=== PATIENT | female | born 1935 | race Hispanic/Latino ===

== ENCOUNTER 2017-07-26 06:03 | Day surgery (SDC) | payer MEDICARE ==
[2017-07-15 10:34] VITALS: BMI 28.3
[2017-07-26] MEDS ORDERED: Lidocaine 1% Inj (20ml) ONE (07:20)
[2017-07-26] MEDS ORDERED: Dexamethasone 4 mg/1 ml ONE (07:20)
[2017-07-26] MEDS ORDERED: Midazolam 2 MG/2 ML VIAL ONE (07:46)
[2017-07-26] MEDS ORDERED: Propofol 10 mg/ml Inj (20 ML) ONE ×3 (07:47→08:55)
[2017-07-26] MEDS: Bupivacaine 0.5% Inj(30mL) ONE ×2 (07:50→09:35)
[2017-07-26] MEDS ORDERED: HYDROmorphone 0.5 mg/0.5 ml ISec IVP PRN (09:53)
--- NOTE | 2017-07-26 09:54 | PCM.SURG1 ---
Surgeon's Initial Post Op Note - Surgeon's Notes Surgeon: Dr. Javid Singleton, DPM Catalytic Converter Operator Helper: Dr. Ck Fu, PGY1 Type of Anesthesia: IV Sedation, Local Anesthesia Administered By: Dr. Bo Pre-Operative Diagnosis: Painful hallux abductovalgus right foot. Painful hammertoe deformity, right second digit Operative Findings: See dictation report. M- 18 mm headless, cannulated 3.0 screw, 1.3 mm orthosorb pin, 2-0 vicryl, 4-0 vicryl, 4-0 nylon. I- Preop: 20 cc 1:1 1% lidocaine plain and 0.5% marcaine plain. Postop: 10 cc 0.5% marcaine plain, 1 cc dexamethasone Post-Operative Diagnosis: Same as above Operation Performed: 1) Reverdin- [place] osteotomy with headless screw fixation right foot, first metatarsal. 2) Distal edyta procedure, right first proximal phalanx. 3) Dorsomedial 2nd MTPJ capsulotomy. 4) Stab incision flexor tenotomy , DIPJ right second digit Specimen/Specimens Removed: None Estimated Blood Loss: EBL {In ML}: 10 Blood Products Given: N/A Drains Used: No Drains Post-Op Condition: Good Date of Surgery/Procedure: 07/26/17 Time of Surgery/Procedure: 08:00
[2017-07-26 10:47] VITALS: TEMP 97.5
[2017-07-26 10:57] VITALS: BP 144/70; PULSE 56; RESP 18; O2SAT 94
--- NOTE | 2017-07-26 10:57 | RAD ---
PROCEDURE: Right Foot Radiographs. HISTORY: s/p right foot surgery COMPARISON: None. FINDINGS: BONES: There is loss of the normal cortex along the medial aspect of the head of the 1st metatarsal. Presumably this is from recent surgery. Osteomyelitis cannot be excluded. A vertically oriented transverse screw can be seen in the head of the metatarsal JOINTS: Normal. SOFT TISSUES: Normal. OTHER FINDINGS: None. IMPRESSION: There is loss of the normal cortex along the medial aspect of the head of the 1st metatarsal. Presumably this is from recent surgery. Osteomyelitis cannot be excluded. A vertically oriented transverse screw can be seen in the head of the metatarsal
--- NOTE | 2017-07-26 11:05 | RAD ---
PROCEDURE: Fluoroscopy up to 1 hour HISTORY: INSERT SCREW RT FOOT COMPARISON: TECHNIQUE: Fluoroscopy was provided in the operating room. 2 seconds of fluoroscopy time were utilized. 1 image was submitted FINDINGS: The image shows 2 longitudinally oriented pins in the 1st metatarsal IMPRESSION: As above
--- NOTE | 2017-07-27 19:38 | OP ---
PROCEDURE DATE: 07/26/2017 PREOPERATIVE DIAGNOSES: Painful hallux abductovalgus, right foot; painful hammertoe deformity, right second digit. POSTOPERATIVE DIAGNOSES: Painful hallux abductovalgus, right foot; painful hammertoe deformity, right second digit.. PROCEDURES: 1. [place] osteotomy with headless screw fixation, right foot first metatarsal. 2. Distal Manuel procedure, right first proximal phalanx. 3. Dorsomedial second metatarsophalangeal joint capsulotomy. 4. Stab incision flexor tenotomy, distal interphalangeal joint, right second digit. SURGEON: Javid Singleton DPM WATCH REPAIR PERSON: Ck Fu, PGY1. TYPE OF ANESTHESIA: IV sedation with local. ANESTHESIA ADMINISTERED BY: Dr. Bo. INDICATIONS: The patient is an 82-year-old female with the above diagnoses. The patient has exhausted all conservative treatments at this time and now requires surgical intervention. The patient signed the consent after careful explanation of risks, benefits, complications, and alternatives of the surgical procedure. No guarantees were given nor implied. N.p.o status was confirmed prior to taking the patient to the OR. PREPARATION: The patient was brought into the operating room and placed on the operating room table in a supine position. Time-out was performed for identification of the correct patient and procedure. After induction of IV sedation, the patient received a total of 20 mL of a 1:1 mixture of 0.5% Marcaine plain and 1% Lidocaine plain in a local block fashion to the right first and second rays. The right lower extremity was then prepped and draped in a normal sterile manner. Pneumatic tourniquet at a pressure setting of 225 mmHg was then inflated and the procedure was begun. DESCRIPTION OF PROCEDURE: 1. Attention was then drawn to the first ray. Using a #15 blade, a longitudinal incision was made down to the level of subcutaneous tissue from the level of the mid shaft to the first metatarsal bone to the level of the base of the first proximal phalanx. Using the same blade, sharp dissection was made down to below the level of deep fascia with extra care taken to ensure the neurovascular tendinous and ligamentous structures were identified and avoided. A lateral release was then performed in the normal manner without incident. Using a new number 64,00 blade, a longitudinal incision was made along the length of the first metatarsal down to the level of bone and the periosteum was dissected away from the bone exposing the metatarsal head and distal shaft. Using an oscillating saw, the medial prominence of the metatarsal head was resected in the sagittal plain and removed from the field. The oscillating saw was then used to make a classic Reverdin-[place] cut where a 90-degree [id number] osteotomy of the metatarsal head is made with a medially based wedge removed. The newly formed capital fragment was then moved laterally in order to adequately close down the patient's increased first intermetatarsal angle and the capital fragment was fixated into its new position using an 18 mm headless cannulated 3.0 screw. 2. Attention was then drawn to the level of the first proximal phalanx. Using a fresh #15 blade, a longitudinal incision was made down to the level of subcutaneous tissue from the level of the base of the first distal phalanx to just distal to the level of the base of the first proximal phalanx. Using the same blade, sharp dissection was made down to below the level of the fascia with extra care taken to ensure that the neurovascular tendinous and ligamentous structures were identified and avoided. Using a new #64,00, blade a longitudinal incision was made along the length of the first metatarsal down to the level of the bone and the periosteum was dissected away from the bone exposing entire mid shaft of the first proximal phalanx. An oscillating saw was then used to perform a medially based wedge osteotomy in the distal aspect of the first proximal phalanx shaft in a traditional Manuel style without violation of the lateral cortex. Osseous wedge was removed from the field and the remaining gap was closed down so that bony apposition was appreciated. The osteotomy was held in this new position using a 1.3 mm OrthoSorb pin. 3. Attention was then drawn to the dorsal right second metatarsophalangeal joint where an approximately 3 mm incision was made using a #15 blade. A #6400 blade was then inserted into the incision and a dorsomedial metatarsophalangeal joint capsulotomy was performed without incident. 4. Attention was then drawn to the plantar right second distal interphalangeal joint where a transverse incision was made with a #15 blade. A #64,00 blade was then inserted in to the incision site and a transverse tenotomy of the flexor digitorum brevis tendon was performed without incident. All incision sites were then flushed with copious amounts of sterile normal saline. The incision site at the first metatarsal and first proximal phalanx were closed with 2-0 Vicryl and 4-0 Vicryl deep and 4-0 nylon superficially. Incision site at the dorsal second metatarsophalangeal joint was closed with 4-0 nylon superficially and the stat incision made at the plantar second distal interphalangeal joint was left open. A 10 mL of 0.5% Marcaine plain and 1 mL of dexamethasone was then injected around all surgical sites. All sites were dressed with Betadine soaked Adaptic gauze and Kerlix. POST OPERATIVE CONDITION: The patient tolerated the anesthesia and procedure well and was escorted to the recovery room with vital signs stable and neurovascular status intact to the right lower extremity. The patient is to remain partial weightbearing to right lower extremity. The patient will follow up with Dr. Singleton in his office in one week. Ck Fu DPM Javid Singleton DPM
== END 2017-07-26 11:25 | disposition home or self-care (01) ==
LOC: SDS 06:03
PROVIDERS: ATTEND Podiatrist
DX: M20.11 Hallux valgus (acquired), right foot (principal); M20.41 Other hammer toe(s) (acquired), right foot
CPT/HCPCS: 28270; 28285; 28296; 73630; 88304; 88311; C1713; J0690; J1100; J1170; J2250; J2405; J2704; J3010; J7120

== ENCOUNTER 2018-07-10 07:34 | Emergency (ER) | payer MEDICARE ==
[2018-07-10 07:59] VITALS: BMI 29.2
--- NOTE | 2018-07-10 08:09 | ED PDOC ---
Arrival/HPI - General Historian: Patient - History of Present Illness Narrative History of Present Illness (Text): 07/10/18 08:02 83 yo F with no significant past medical history presenting to ED with L wrist and knee pain s/p mechanical fall yesterday morning. Per patient, she was walking outside when she tripped over an uneven sidewalk, hitting the L side of her head and breaking her fall on L wrist and knee. She denies any loss of consciousness, headaches, or dizziness. She was able to pick herself back up after the fall and walk back home. She decided to come to the ED today because of increased swelling to her L wrist and continued mild discomfort of the L wrist and knee. No other acute complaints at this time. Patient refused tetanus vaccine at this time. No fevers/chills, headaches, dizziness, changes in vision, chest pain, palpitations, abdominal pain, n/v/d/c. PMHx: none PSHx: none Allergies: NKDA Home Medications: None Family Hx: unknown Social Hx: former smoker-quit 25 years ago, 2 ppd; denies alcohol or drug use PMD: Dr. Paulino Time/Duration: 24 hours Symptom Onset: Sudden Symptom Course: Unchanged Severity Level: Mild Activities at Onset: Light <Chinedu Judd - Last Filed: 07/10/18 09:50> <Sourav Kevin - Last Filed: 07/10/18 11:48> - General Chief Complaint: Trauma Time Seen by Provider: 07/10/18 07:41 Past Medical History - Provider Review Nursing Documentation Reviewed: Yes - Past History Past History: No Previous - Cardiac Hx Pacemaker: No - Neurological Hx Paralysis: No - Hematological/Oncological Hx Blood Transfusions: No - Musculoskeletal/Rheumatological Hx Musculoskeletal Disorders: Yes - Psychiatric Hx Emotional Abuse: No Hx Physical Abuse: No Hx Substance Use: No - Anesthesia Hx Anesthesia Reactions: No - Suicidal Assessment Feels Threatened In Home Enviroment: No <Chinedu Judd - Last Filed: 07/10/18 09:50> Family/Social History - Physician Review Nursing Documentation Reviewed: Yes Family/Social History: Unknown Family HX Smoking Status: Former Smoker Hx Alcohol Use: No Hx Substance Use: No <Chinedu Judd - Last Filed: 07/10/18 09:50> Allergies/Home Meds <Chinedu Judd - Last Filed: 07/10/18 09:50> <Jade Kevinil - Last Filed: 07/10/18 11:48> Allergies/Adverse Reactions: Allergies No Known Allergies Allergy (Verified 07/10/18 08:12) Home Medications: Home Meds Medication Instructions Recorded Confirmed RX: No Known Home Med 07/10/18 07/10/18 Review of Systems - Review of Systems Constitutional: Normal Eyes: Normal ENT: Normal Respiratory: Normal Cardiovascular: Normal Gastrointestinal: Normal Genitourinary Female: Normal Musculoskeletal: Joint Swelling Skin: Skin Lesions Neurological: Normal. absent: Headache, Dizziness, Gait Changes, Speech Changes, Facial Droop, Disequilibrium Endocrine: Normal Hemo/Lymphatic: Normal Psychiatric: Normal <Chinedu Judd - Last Filed: 07/10/18 09:50> Physical Exam - Physical Exam Narrative Physical Exam (Text): 07/10/18 08:16 L perioribital ecchmyosis, small abrasion above L eyebrow swelling, mild TTP dorsum L wrist L knee: swollen, mild abrasion, mild TTP over patella. Mild pain with L knee flexion/extension No focal neurological deficits, no gait changes A&Ox3 Appearance: Positive for: Non-Toxic, Comfortable Pain Distress: Mild Mental Status: Positive for: Alert and Oriented X 3 - Systems Exam Head: Present: Atraumatic, Normocephalic, Ecchymosis (L periorbital bruising) Pupils: Present: PERRL Extroacular Muscles: Present: EOMI Conjunctiva: Present: Normal Ears: Present: Normal Mouth: Present: Moist Mucous Membranes Pharnyx: Present: Normal Nose (External): Present: Atraumatic Nose (Internal): Present: Normal Inspection Neck: Present: Normal Range of Motion Respiratory/Chest: Present: Clear to Auscultation, Good Air Exchange. No: Respiratory Distress, Accessory Muscle Use, Wheezes, Rales, Rhonchi Cardiovascular: Present: Regular Rate and Rhythm, Normal S1, S2 Abdomen: Present: Normal Bowel Sounds. No: Tenderness, Distention, Rebound, Guarding, Mass/Organomegaly Upper Extremity: Present: Normal ROM, NORMAL PULSES, Tenderness (mild TTP dorsum L wrist), Swelling (L wrist), Capillary Refill < 2s. No: Erythema Lower Extremity: Present: NORMAL PULSES, Normal ROM, Tenderness (mild pain with L knee flexion/extension), Swelling (L knee), Capillary Refill < 2 s. No: CALF TENDERNESS, Cyanosis Neurological: Present: CN II-XII Intact, Speech Normal Skin: Present: Warm, Dry Psychiatric: Present: Alert, Oriented x 3, Normal Insight, Normal Concentration <Chinedu Judd - Last Filed: 07/10/18 09:50> Vital Signs Temp Pulse Resp BP Pulse Ox 07/10/18 09:33 72 18 118/74 98 07/10/18 08:01 98.1 F 76 18 112/76 98 <Sourav Kevin - Last Filed: 07/10/18 11:48> Medical Decision Making ED Course and Treatment: 07/10/18 08:25 --XR maxillofacial, wrist, knee --CT head w/o contrast --monitor and disposition - RAD Interpretation Narrative RAD Interpretations (Text): 07/10/18 09:51 No acute fractures or hemorrhage on imaging Radiology Orders: 07/10/18 07:54 HEAD W/O CONTRAST [CT] Stat MAXILLOFACIAL W/O CONTRAST [CT] Stat WRIST, LEFT 3 VIEWS [RAD] Stat 07/10/18 07:55 KNEE LEFT 2 VIEWS (AP & LAT) [RAD] Stat Kennel Operator: ED Physician <Chinedu Judd - Last Filed: 07/10/18 09:50> ED Course and Treatment: 07/10/18 11:48 pt seen with resident s/p mechanical fall xr imaging neg. declines tdap. advise outpt fu. - RAD Interpretation Radiology Orders: 07/10/18 07:54 HEAD W/O CONTRAST [CT] Stat MAXILLOFACIAL W/O CONTRAST [CT] Stat WRIST, LEFT 3 VIEWS [RAD] Stat 07/10/18 07:55 KNEE LEFT 2 VIEWS (AP & LAT) [RAD] Stat <Sourav Kevin - Last Filed: 07/10/18 11:48> Disposition/Present on Arrival - Present on Arrival Any Indicators Present on Arrival: No History of DVT/PE: No History of Uncontrolled Diabetes: No Urinary Catheter: No History of Decub. Ulcer: No - Disposition Have Diagnosis and Disposition been Completed?: Yes Disposition Time: 09:51 <Chinedu Judd - Last Filed: 07/10/18 09:50> <ShanbartoloSourav - Last Filed: 07/10/18 11:48> - Disposition Diagnosis: Head injury, Facial contusion, Wrist sprain, Knee sprain Disposition: HOME/ ROUTINE Condition: STABLE Discharge Instructions (ExitCare): Wrist Sprain (DC), Contusion (DC), Knee Sprain (DC), Head Injury Observation (DC) Additional Instructions: return to er with worsening symptoms or concerns. Referrals: Fidel Paulino MD [Primary Care Provider] - Follow up with primary Forms: [employer] (Portuguese)
[2018-07-10 08:12] VITALS: RESP 18; TEMP 98.1; O2SAT 98
--- NOTE | 2018-07-10 09:06 | CT ---
Date of service: 07/10/2018 PROCEDURE: CT HEAD WITHOUT CONTRAST. HISTORY: fall COMPARISON: None available. TECHNIQUE: Axial computed tomography images were obtained through the head/brain without intravenous contrast. Radiation dose: Total exam DLP = 827.72 mGy-cm. This CT exam was performed using one or more of the following dose reduction techniques: Automated exposure control, adjustment of the mA and/or kV according to patient size, and/or use of iterative reconstruction technique. FINDINGS: HEMORRHAGE: No intracranial hemorrhage. BRAIN: No mass effect or edema. Mild diffuse age-appropriate atrophy. Mild chronic periventricular white matter ischemic change. VENTRICLES: Unremarkable. No hydrocephalus. CALVARIUM: Unremarkable. PARANASAL SINUSES: Unremarkable as visualized. No significant inflammatory changes. MASTOID AIR CELLS: Unremarkable as visualized. No inflammatory changes. OTHER FINDINGS: None. IMPRESSION: No intracranial hemorrhage. Age-appropriate involutional changes.
--- NOTE | 2018-07-10 09:09 | CT ---
Date of service: 07/10/2018 PROCEDURE: CT MAXILLOFACIAL BONES WITHOUT CONTRAST HISTORY: fall, left orbital swelling COMPARISON: None available. TECHNIQUE: Contiguous axial CT images of the maxillofacial bones were obtained. Coronal and sagittal reformats were generated. Radiation dose: Total exam DLP = 687.83 mGy-cm. This CT exam was performed using one or more of the following dose reduction techniques: Automated exposure control, adjustment of the mA and/or kV according to patient size, and/or use of iterative reconstruction technique. FINDINGS: NASAL BONES: Unremarkable. ORBITS: No fracture. The lamina papyracea and orbital floor are intact bilaterally. Globes are rounded and symmetric. No intraorbital hemorrhage. No significant periorbital soft tissue swelling appreciated. PARANASAL SINUSES/ MASTOIDS: Clear. MAXILLA: Unremarkable. MANDIBLE/ TEMPOROMANDIBULAR JOINTS: Unremarkable. SKULL BASE: Unremarkable. TEMPORAL BONES: Middle ears and mastoid grossly unremarkable. OTHER FINDINGS: None. IMPRESSION: No evidence of acute orbital fracture.
--- NOTE | 2018-07-10 09:14 | RAD ---
Date of service: 07/10/2018 PROCEDURE: Left Knee Radiographs. HISTORY: Pain. COMPARISON: None. FINDINGS: BONES: Normal. No fracture. JOINTS: Mild medial and patellofemoral osteoarthritis. No articular erosion. JOINT EFFUSION: None. OTHER FINDINGS: None. IMPRESSION: Mild medial and patellofemoral osteoarthritis.
--- NOTE | 2018-07-10 09:16 | RAD ---
Date of service: 07/10/2018 PROCEDURE: Left Wrist Radiographs. HISTORY: trauma COMPARISON: None. FINDINGS: BONES: Old healed distal radial fracture with mild deformity. JOINTS: Osteoarthritis of the radiocarpal and CMC 1 articulations. Degenerative arthritis at the distal radioulnar articulation. SOFT TISSUES: Normal. OTHER FINDINGS: None. IMPRESSION: No acute fracture. Old healed fracture distal radius and osteoarthritis as described.
[2018-07-10 09:34] VITALS: BP 118/74; PULSE 72
== END 2018-07-10 09:43 | disposition home or self-care (01) ==
LOC: ED 07:34
DX: S00.83XA Contusion of other part of head, initial encounter (principal); S63.502A Unspecified sprain of left wrist, initial encounter; S83.92XA Sprain of unspecified site of left knee, initial encounter; W01.0XXA Fall on same level from slipping, tripping and stumbling without subsequent striking against object, initial encounter; Y92.480 Sidewalk as the place of occurrence of the external cause